=== PATIENT | female | born 1985 | race Hispanic/Latino ===

== ENCOUNTER 2016-06-02 13:45 | Emergency (ER) | payer BC, OTHER ==
[2016-06-02 14:48] VITALS: BMI 27.4
--- NOTE | 2016-06-02 15:27 | OBHP ---
Datetime: 06/02/2016 15:20 IP Adm Impression: , intrauterine ; No Active Labor; Intact Membranes IP Admit Plan: Observation/Evaluation; Discharge home Admit Comment, IP Provider: 30-year-old at 30 weeks and 3 days gestational age presents to O B D status post fall. Patient reports falling approximately 4-5 days ago. Patient denies any abdomina l trauma during fall. Patient reports slipping and falling on her backside. Patient denies any contra ctions, vaginal bleeding, leakage of fluids. Patient reports good movement. Patient also compla ins of occasional heart palpitations. No dyspnea, no shortness of breath, no labored breathing. Other falk, patient without complaints. course unremarkable as per patient. Past medical history none Past surgical history none Medications vitamins No known drug allergies Obstetrical history full-term normal spontaneous vaginal delivery 2 Social history no tobacco, no drugs, no alcohol Physical exam: Deferred physical exam findings Assessment: 30-year-old 002 at 30 weeks gestational age status post fall approximately 4 days ago. Both maternal well-being and well-being reassuring at this time. heart tracing reassuring and reactive Plan: Continue observation at [facility] As per PMD, we will check CBC, type and screen, EKG, fibronectin. Discussed plan with patient and all patient questions answered. Pelvic Type - PN: Adequate Extremities - PN: Normal Abdomen - PN: Normal Back - PN: Normal Breast - PN: Normal Lungs - PN: Normal Heart - PN: Normal Thyroid - PN: Normal Neurologic - PN: Normal HEENT - PN: Normal General - PN: Normal FHR - Baseline A Provider: 130s Membranes, Provider: Intact Contraction Comments Provider: none Comments, ACOG Physical Exam: ROS: General: no weakness; no fatigue HEENT: no BARAJAS; no visual dist CV: no palpitations; no no CP GI: noN/V no diarhea No epigastric pain; non radiating : no F/U/D MS: No joint pain Sterile speculum exam: Cervix long, closed, posterior No blood, fluid, discharge fibronectin done IP Hx Assessment: The History has been Reviewed and is Current Vital Signs Provider: Reviewed; Within Normal Limits IP Chief Complaint: Trauma/Fall NICHD Variability Prov Fetus A: Moderate 6-25bpm NICHD Accel Fetus A IP Provider: 15X15 FHR Category Provider Fetus A: Category I NICHD Decel Fetus A IP Provider: None Dilatation, Provider: 0 Effacement, Provider: 0 Station, Provider: -4 Genitourinary Exam: Normal DTRs - PN: Normal
[2016-06-02 15:31] LABS: MEAN CELL VOLUME 93.3 fl (81.0-99.0); MEAN CORPUSCULAR HEMOGLOBIN 30.8 pg (27.0-31.0); RED CELL DISTRIBUTION WIDTH 13.3 % (11.5-14.5); WHITE BLOOD COUNT 12.1 K/uL (4.8-10.8)
[2016-06-02 15:49] LABS: PARTIAL THROMBOPLASTIN TIME 23.8 SECONDS (23.3-32.5)
--- NOTE | 2016-06-03 23:10 | CARD ---
APPROVED REPORT EKG Measurement Heart [id number] <Conclusion> Normal sinus rhythm with sinus arrhythmia Possible Left atrial enlargement Borderline ECG
== END 2016-06-02 17:20 | disposition home or self-care (01) ==
LOC: H.EROB2 13:45 → MERGE 13:45 → H.EROB2 17:20
DX: O26.93 Pregnancy related conditions, unspecified, third trimester (principal); Z04.3 Encounter for examination and observation following other accident; Z71.1 Person with feared health complaint in whom no diagnosis is made; W19.XXXA Unspecified fall, initial encounter

== ENCOUNTER 2016-07-04 14:30 | Emergency (ER) | payer BC ==
[2016-07-04 15:01] VITALS: BMI 28.3
[2016-07-04] MEDS ORDERED: Lactated Ringer's 1,000 ML IV SCH (15:15)
--- NOTE | 2016-07-04 17:09 | US ---
PROCEDURE: HISTORY: LEYLA COMPARISON: TECHNIQUE: FINDINGS: Evaluation demonstrates a single live intrauterine fetus with 151 beats per minute heart rate. Biophysical profile score is 8 out of 8. Amniotic fluid index is roughly 18 centimeters. biometric measurements and anatomic survey was not performed. IMPRESSION: As above.
[2016-07-04 18:24] LABS: HEMATOCRIT 34.6 % (34.0-47.0); MEAN CELL VOLUME 91.9 fl (81.0-99.0); MEAN CORPUSCULAR HEMOGLOBIN 30.4 pg (27.0-31.0); MEAN CORPUSCULAR HGB CONC 33.1 g/dL (33.0-37.0); RED CELL DISTRIBUTION WIDTH 13.7 % (11.5-14.5); WHITE BLOOD COUNT 13.4 K/uL (4.8-10.8)
[2016-07-04 18:27] LABS: RBC URINE 2 /hpf (0-3); URINE BACTERIA RARE (<OCC); URINE BILIRUBIN NEGATIVE (NEGATIVE); URINE BLOOD SMALL (NEGATIVE); URINE COLOR YELLOW (YELLOW); URINE GLUCOSE (UA) NEG (Normal); URINE KETONE NEGATIVE (NEGATIVE); URINE LEUKOCYTE ESTERASE NEG Leu/uL (Negative); URINE PROTEIN NEGATIVE (NEGATIVE); URINE UROBILINOGEN 0.2-1.0 mg/dL (0.2-1.0); WBC URINE 1 /hpf (0-5)
[2016-07-04] MEDS ORDERED: Betamethasone Soluspan 30 mg/5mL Inj Susp IM ONE (20:35)
== END 2016-07-04 21:30 | disposition home or self-care (01) ==
LOC: H.EROB2 14:30
DX: O47.03 False labor before 37 completed weeks of gestation, third trimester (principal); Z3A.35 35 weeks gestation of pregnancy
CPT/HCPCS: 76818; 81003; 85027; 99284; J0702

== ENCOUNTER 2016-07-05 20:46 | Emergency (ER) | payer BC ==
[2016-07-04 15:01] VITALS: BMI 28.3
[2016-07-05] MEDS ORDERED: Betamethasone Soluspan 30 mg/5mL Inj Susp IM ONE (21:30)
--- NOTE | 2016-07-05 22:57 | OBHP ---
Datetime: 07/05/2016 21:10 IP Adm Impression: , intrauterine IP Chief Complaint Other: second dose betamethasone IP Admit Plan: Observation/Evaluation; Discharge home Admit Comment, IP Provider: 30 yo , at 35.1 weeks GA with MUNDO 08/08 / by lmp _ 12week us pres ents to [facility] for second dose corticosteroid administration Betamethasone. Patient reports irregular n onpainful Ctx every 30-45 min. Patient was referred by Dr Watson yesterday and evaluated in [facility] to r /o PPROM.PPROM was ruled out. Patient today denies LOF, VB, vaginal discharge, dysuria, headache and reports + FM. LAst visit wit Dr Watson yesterday, next visit . POBHx: x 2 full term. iron defficiency anemia. UTI treated 2 weeks ago PMhx: none Allergies: NKDA Meds: PNv, Iron PSurgHx: None PShx: No ETOH,rect drugs, cig Assessment/Plan: 30 yo , at 35.1 weeks GA. -Betamethasone 12 mg IM. second doses today Pastora Marie PGY1 Case discussed with Dr Moore ROS: General: no fatigue no weakness HEENT: no BARAJAS; no visual dist CV: no CP; no palpitaions Resp: no sob; no cough GI: No N/V/D : No F/U/D MS: no joint pain OB Hospitalist on-call....Pt seen by me. Agree with PGY1 note. MAHNDO Pelvic Type - PN: Adequate Extremities - PN: Normal Abdomen - PN: Normal Back - PN: Normal Breast - PN: Not Done Lungs - PN: Normal Heart - PN: Normal Thyroid - PN: Normal Neurologic - PN: Normal HEENT - PN: Normal General - PN: Normal FHR - Baseline A Provider: 140 Contraction Comments Provider: irregular Comments, ACOG Physical Exam: pelvic exam yesterday: 2cm/40/-3 IP Hx Assessment: The History rev'd EGA AdmitDate IP: 35.1 Vital Signs Provider: Reviewed; Within Normal Limits IP Chief Complaint: Other NICHD Variability Prov Fetus A: Moderate 6-25bpm NICHD Accel Fetus A IP Provider: 15X15 FHR Category Provider Fetus A: Category I NICHD Decel Fetus A IP Provider: None Dilatation, Provider: 2cm Effacement, Provider: 40 Station, Provider: -3 Genitourinary Exam: Normal DTRs - PN: Normal Datetime: 07/04/2016 16:30 Membranes, Provider: Intact Pool Provider: Negative Nitrazine Provider: Negative
--- NOTE | 2016-07-05 22:57 | OBDCSUM ---
Datetime: 07/05/2016 21:54 Discharged to, Provider: Home Follow up at, Provider: Dr. Watson Disch Instr Activity: Bedrest Disch Instr Diet: Regular Discharge Time: 07/05/2016 21:55 Follow up in weeks, Provider: 07/07/2016 @ 10:45 am Disch Referrals: None Disch Activity Restrictions: No lifting Discharge Diagnosis Prov Other:
== END 2016-07-05 22:10 | disposition home or self-care (01) ==
LOC: H.EROB2 20:46
DX: O47.03 False labor before 37 completed weeks of gestation, third trimester (principal); Z3A.35 35 weeks gestation of pregnancy
CPT/HCPCS: 96372; 99281; J0702